=== PATIENT | male | born 1955 | race Caucasian/White ===

== ENCOUNTER → 2016-11-10 | Outpatient (CLI) | payer OTHER ==
--- NOTE | 2016-11-10 09:46 | DX ---
Biphasic Esophagram CLINICAL HISTORY: 61-year-old male with a chronic cough. Evaluate for gastroesophageal reflux disease . The patient has been on omeprazole for 2 days now, and indicates that his sleeping may have slightl y improved. TECHNIQUE: Initially, thin barium was ingested by the patient while standing, and fluoroscopy was per formed. Subsequently, the patient ingested effervescent crystals and thick barium and imaging of the hypopharynx and of the cervical and thoracic esophagus was performed while standing. The patient also ingested a 13 mm tablet with water. The patient was then placed in a prone SNOW position, and thin ba rium was ingested while a Valsalva maneuver was performed. Finally, the patient was placed in a prone position, and a Valsalva maneuver was again performed. Fluoroscopy Time: 1.8 minutes minutes (exposure dose of 20 mGy) COMPARISON STUDY: None. FINDINGS: There is normal oral pharyngeal propulsion of the bolus into the hypopharynx with a normal, symmetrical appearance to the vallecula and the piriform sinuses. The posterior cervical esophagus i s normal. There is no cricopharyngeus spasm, achalasia, or Zenker's diverticulum. There is no aspirat ion. There is antegrade esophageal motility while standing; however, when the patient was placed in e ither prone or supine positions, there was some low-level gastroesophageal reflux transiently observe d. Additionally, when the patient was supine, there were some instances of both antegrade and retrogr mathew peristalsis, and occasional tertiary esophageal contractions were observed, consistent with mild esophageal dysmotility. There is no esophageal ulceration, pulsion diverticulum, or stricture. There is no evidence of hiatal hernia, despite provocative maneuvers. I provided a preliminary interpretation to the patient at times in performance. IMPRESSION: 1. Low-level gastroesophageal reflux. 2. Antegrade and retrograde esophageal dysmotility when the patient was supine.
== END ==
LOC: FIMAGING 08:15
PROVIDERS: ATTEND Internal Medicine Pulmonary Disease
DX: K21.9 Gastro-esophageal reflux disease without esophagitis (principal); K22.4 Dyskinesia of esophagus